=== PATIENT | female | born 1945 | race African-American/Black ===

== ENCOUNTER → 2021-07-04 | Outpatient (CLI) | payer MEDICARE, OTHER ==
--- NOTE | 2021-07-11 10:22 | RAD ---
DATE: 07/11/2021 EXAM: MG BILAT SCREEN+JOSH HISTORY: Screening COMPARISON: 03/10/2019 This study was interpreted with the benefit of Computerized Aided Detection (CAD). Breast Density: SCATTERED The breast parenchyma shows scattered fibroglandular densities. Breast pare nchyma level B. FINDINGS: No suspicious mass, suspicious calcification, or architectural distortion. Bilateral benign calcifications are unchanged. IMPRESSION: No evidence of malignancy. BI-RADS CATEGORY: 2 BENIGN FINDING(S) RECOMMENDED FOLLOW-UP: 12M 12 MONTH FOLLOW-UP PQRS compliance statement: Patient information was entered into a reminder system with a target due d ate for the next mammogram. Mammography is a sensitive method for finding small breast cancers, but it does not detect them all a nd is not a substitute for careful clinical examination. A negative mammogram does not negate a clin ically suspicious finding and should not result in delay in biopsying a clinically suspicious abnorma lity. "Our facility is accredited by the [employer] Mammography [employer]." Electronically signed by: Hilda Yepez MD (07/11/2021 10:20 AM) [email or web address]
== END ==
LOC: MAMMO 10:46
PROVIDERS: ATTEND Family Medicine
DX: Z12.31 Encounter for screening mammogram for malignant neoplasm of breast (principal)
CPT/HCPCS: 77063; 77067